=== PATIENT | female | born 1960 | race Caucasian/White ===

== ENCOUNTER 2018-08-07 14:24 | Outpatient (CLI) | payer OTHER ==
--- NOTE | 2018-08-07 15:33 | RAD ---
CERVICAL SPINE: Total of 6 views. Lateral views obtained in neutral, flexion, and extension positions. INDICATION: Cervical radiculopathy. FINDINGS: Cervical vertebra maintain height. Moderate degenerative changes are noted at the C5-6 and C6-7 level s. There is disc narrowing at these levels with anterior osteophytes and posterior spondylitic change . There is a mild posterolisthesis at C5-6, which is accentuated on extension. IMPRESSION: Degenerative changes at C5-6 and C6-7 as described. POS: OFF
== END 2018-08-07 14:25 | disposition home or self-care (01) ==
LOC: TBSIIMAG 14:24
PROVIDERS: ATTEND Surgery
DX: M47.22 Other spondylosis with radiculopathy, cervical region (principal)
CPT/HCPCS: 72050